=== PATIENT | male | born 1980 | race Caucasian/White ===

== ENCOUNTER → 2023-03-15 08:02 | Outpatient (CLI) | payer OTHER, SELFPAY ==
--- NOTE | 2023-03-15 08:07 | DI.RAD.S_ITS ---
PROCEDURE: FL KNEE INJECTION MR/CT RT INDICATIONS: RIGHT KNEE PAIN COMPARISON: None. TECHNIQUE: The indications, alternatives, benefits, risks, and complications of the procedure were explained to the patient. Written informed consent was obtained and placed in the chart. The knee was examined fluoroscopically, and a site chosen for knee joint injection. The skin was prepped and draped in a sterile fashion, and 1% Lidocaine infiltrated from the skin down to the articular surface. A hypodermic needle was then introduced into the joint and iodinated contrast media was instilled to confirm the intra-articular needle tip placement. This was followed by approximately 50 mL dilute solution of a gadolinium containing MR contrast agent. The needle was removed and a bandage was applied. An Martin wrap was then applied around the knee joint to keep the contrast from collecting in the suprapatellar recess. The patient experienced no complications throughout the procedure and left the fluoroscopic suite in no apparent distress. FINDINGS: Single fluoroscopic spot image demonstrates intra-articular location to injected iodinated contrast. IMPRESSION: Successful fluoroscopically guided administration of dilute Gadolinium solution into the knee joint for MR arthrogram. Dictated by: Joseph Alexis M.D. on 03/15/2023 at 9:52 Approved by: Joseph Alexis M.D. on 03/15/2023 at 9:54
--- NOTE | 2023-03-15 08:07 | DI.MRI.S_ITS ---
PROCEDURE: MR KNEE RT W CON INDICATIONS: RIGHT KNEE PAIN TECHNIQUE: After the administration of 50 mL of dilute intra-articular Gadolinium contrast, sagittal T1 spin echo with fat saturation and PD fast spin echo with fat saturation, coronal T1 spin echo with and without fat saturation, coronal T2 fast spin echo with fat saturation, axial PD fast spin echo with fat saturation through the knee. COMPARISON: [facility], [place], [place] KNEE INJECTION MR/CT RT, 03/15/2023, 8:32. [facility], CR, XR KNEE ARTHRITIC SERIES RT, 01/22/2023, 13:46. FINDINGS: Image quality: Excellent. Menisci: There is horizontal tear involving the posterior horn of the medial meniscus. The lateral meniscus demonstrates normal morphology and internal signal. The meniscal root ligaments appear intact. Cruciate ligaments: The anterior and posterior cruciate ligaments appear intact. Medial structures: The medial collateral ligament appears intact. The semimembranosus tendon insertions and meniscocapsular junction appear intact. Visualized portions of the pes anserinus tendons appear normal. No abnormal bursal fluid. Lateral structures: The lateral collateral ligament, long and short heads of the biceps femoris tendon appear intact. The popliteus tendon appears normal. Iliotibial band appears normal. Anterior structures: The quadriceps and patellar tendons appear intact. Low-grade quadriceps tendinitis and patellar tendinitis. Patellar alignment is normal. No femoral trochlear dysplasia or ventral trochlear prominence. No edema in the infrapatellar fat pad. Bone and cartilage: No bone marrow contusions or fractures. 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 There is a 5 mm full-thickness cartilage defect in the lateral femoral condyle. Near full-thickness cartilage fissures are seen patella. Joint space: No Alvarenga's cyst. Normal appearing synovial plicae are incidentally noted. No intra-articular bodies. IMPRESSION: 1. Horizontal tear of the posterior horn of the medial meniscus. 2. Low-grade quadriceps tendinitis and patellar tendinitis. 3. Tricompartmental cartilage thinning and fibrillation. A 5 mm full-thickness cartilage defect is noted in the lateral femoral condyle. Dictated by: Geraldo Omer M.D. on 03/15/2023 at 10:44 Approved by: Geraldo Omer M.D. on 03/15/2023 at 11:52
[2023-03-15] MEDS: SODIUM CHLORIDE 0.9 % 20 ML VIAL IV ×2 (09:39)
[2023-03-15] MEDS: LIDOCAINE 1% 20 ML INJ (09:39)
== END ==
PROVIDERS: PCP Nurse Practitioner Family; Referring Provider Orthopaedic Surgery; Visit Provider Orthopaedic Surgery
DX: S83.241A Other tear of medial meniscus, current injury, right knee, initial encounter (principal); M76.51 Patellar tendinitis, right knee; M25.561 Pain in right knee
CPT/HCPCS: 27369; 73722; 77002